=== PATIENT | male | born 1970 | race Two or more races ===

== ENCOUNTER 2017-07-23 17:10 | Emergency (ER) | payer OTHER ==
[~2017-07-23] VITALS: Ht 170.2 cm; Wt 108.9 kg
[2017-07-23] MEDS ORDERED: ACETAMINOPHEN ES 500 MG TABLET ONE (17:49)
[2017-07-23] MEDS ORDERED: ACETAMINOPHEN 325 MG TABLET PO ONE (18:00)
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
--- NOTE | 2017-07-23 18:50 | NUR ---
HERMES MURPHY AT FOR WOUND CARE.
--- NOTE | 2017-07-23 19:15 | NUR ---
Patient discharged to home in stable condition. Written and verbal after care instructions given. Patient verbalizes understanding of instruction.
[2017-07-23 19:16] VITALS: BP 132/88
== END 2017-07-23 19:17 | disposition home or self-care (01) ==
LOC: ER 17:13
DX: S02.2XXA Fracture of nasal bones, initial encounter for closed fracture (principal); S09.8XXA Other specified injuries of head, initial encounter; V43.53XA Car driver injured in collision with pick-up truck in traffic accident, initial encounter; Y93.89 Activity, other specified; Y92.413 State road as the place of occurrence of the external cause; Y99.8 Other external cause status
CPT/HCPCS: 70450-TC; 70486-TC; A4606; Z7610